=== PATIENT | male | born 1955 | race Caucasian/White ===

== ENCOUNTER 2018-02-20 10:17 | Inpatient (IN) | payer BC ==
[2018-02-20] MEDS ORDERED: NS 0.9% 1000 ML* 1,000 ML IV ONE ×2 (10:36→10:47)
[2018-02-20] MEDS ORDERED: Insulin IVPB 100 units/100 ml 100 UNITS/100 ML UNIT IVPB ONE ×2 (10:36)
[2018-02-20] MEDS ORDERED: Insulin REGULAR(*) 1 UNITS UNIT IV ONE (10:36)
--- NOTE | 2018-02-20 10:38 | ED ---
HPI Diabetic - HPI Summary HPI Summary: This is gia Ortega documenting for attending Espinoza Jaime MD. This patient is a 62 year old M BIBA to [facility] accompanied by another man with a chief complaint of general malaise for the past two days. Pt is IDDM and believes his pump is not working. He also has not been eating much for the past 2-3 days. Patient reports n/v, weakness, fatigue, difficulty walking, polyuria, polydipsia, and polyphagia. Patient denies SOB, CP, ABD pain, diarrhea, visual changes, and GUILLORY. EMS reports a blood glucose of 520, he was given zofran by EMS. Pt also has a loose front left incisor, takes 81 mg ASA daily. - History Of Current Complaint Chief Complaint: EDDiabeticProb Time Seen by Provider: 02/20/18 10:30 Hx Obtained From: Patient Onset/Duration: Lasting Days - 2, Still Present Timing: Constant Severity Initially: Moderate Severity Currently: Moderate Character: Alert Associated Signs & Symptoms: Negative - SOB, CP, ABD pain, diarrhea, visual changes, and GUILLORY., Polydipsia, Polyphagia, Polyuria - Allergies/Home Medications Allergies/Adverse Reactions: Allergies Allergy/AdvReac Type Severity Reaction Status Date / Time bee venom protein (honey bee) Allergy Swelling Verified 02/20/18 11:15 Of Face,Lips,& Throat PMH/Surg Hx/FS Hx/Imm Hx Endocrine/Hematology History: Reports: Hx Diabetes Cardiovascular History: Reports: Hx Coronary Artery Disease, Other Cardiovascular Problems/Disorders - HLD Psychiatric History: Reports: Hx Depression, Hx Bipolar Disorder Infectious Disease History: No Infectious Disease History: Denies: Traveled Outside the [place] in Last 30 Days - Family History Known Family History: Positive: Diabetes Negative: Seizure Disorder - Social History Alcohol Use: Occasionally Substance Use Type: Reports: None Hx Tobacco Use: No Smoking Status (MU): Never Smoked Tobacco Review of Systems Constitutional: Other - difficulty walking Positive: Fatigue, Other - general malaise Negative: Blurred Vision Negative: Chest Pain Negative: Shortness Of Breath Gastrointestinal: Other - polyuria, polydipsia, and polyphagia Positive: Vomiting, Nausea. Negative: Abdominal Pain, Diarrhea Positive: Weakness. Negative: Headache All Other Systems Reviewed And Are Negative: Yes Physical Exam - Summary Physical Exam Summary: Appearance: mild to moderate distress Skin: there is a callus on the mid anterior tibia Head/face: normal Eyes: EOMI, KHADAR ENT: loose partial incisor, mucus membranes are dry Neck: supple, non-tender Respiratory: tachypneic, breath sounds present, CTA Cardiovascular: tachycardic but regular Abdomen: non-tender, soft, there is a pump implanted into his right flank and it is secured with duct tape, there is induration where the pump was inserted into the skin Bowel Sounds: present Musculoskeletal: normal, strength/ROM intact Neuro: general weakness, no focality, sensory motor intact, A&Ox3 Triage Information Reviewed: Yes Vital Signs On Initial Exam: Initial Vitals Temp Pulse Resp BP Pulse Ox 97.0 F 105 18 177/90 98 02/20/18 10:19 02/20/18 10:19 02/20/18 10:19 02/20/18 10:19 02/20/18 10:19 Vital Signs Reviewed: Yes Diagnostics - Vital Signs Vital Signs Temp Pulse Resp BP Pulse Ox 02/20/18 10:19 97.0 F 105 18 177/90 98 - Laboratory Result Diagrams: 02/20/18 10:58 02/20/18 10:58 Lab Statement: Any lab studies that have been ordered have been reviewed, and results considered in the medical decision making process. - Radiology CXR Radiology Interpretation Completed By: Radiologist - NO ACTIVE CARDIOPULMONARY DISEASE IS NOTED. ED physician has reviewed this radiology report. - EKG 1048 Cardiac Rate: Tachycardia EKG Rhythm: Sinus Tachycardia - at [address] Segment: Non-Specific EKG Interpretation: normal axis and prolonged QTc Diabetic Course/Dx - Course Course Of Treatment: Patient presents critically ill in presumed DKA. His blood sugars very high and he is tachycardic slashed. Initial ABG shows pH of less than 7.0. His bicarbonate is very low. IV fluid resuscitation was begun and insulin drip was ordered. He was also given bolus dose insulin. He has no definite source of infection and no chest pain. His EKG is nondiagnostic for cardiac cause. The ICU physician was contacted and came to the bedside to evaluate. He'll be taken emergently to the ICU for further resuscitation. His potassium is slightly elevated at this time which is a good indicator. His lithium level is actually low. Possible etiologies malfunction of his insulin pump. It was held to the skin by duct tape. - Diagnoses Provider Diagnoses: DKA (diabetic ketoacidoses), Complication of insulin pump, Hyperkalemia, transcellular shifts - Physician Notifications Discussed Care Of Patient With: Phoenix Vargas Time Discussed With Above Provider: 11:10 Instructed by Provider To: Other - I discussed patient care with Dr. Vargas and he has agreed to come see the patient. 11:25 After he examined the patient he has agreed to admit him to the ICU. - Critical Care Time Critical Care Time: 30-74 min Discharge - Sign-Out/Discharge Documenting (check all that apply): Patient Departure - admitte to the ICU under Dr. Vargas - Discharge Plan Condition: Critical Disposition: ADMITTED TO [facility] - Billing Disposition and Condition Condition: CRITICAL Disposition: Admitted to [facility]
[2018-02-20 11:06] LABS: ABS Basophils 0.1 10^3/ul (0-0.2); ABS Eosinophils 0 10^3/ul (0-0.6); ABS Lymphocytes 1.8 10^3/ul (1.0-4.8); ABS Monocytes 0.6 10^3/ul (0-0.8); ABS Neutrophils 21.8 10^3/ul (1.5-7.7); ABS Nucleated RBC 0 10^3/ul; Eosinophil % 0.1 % (0-6); Hematocrit 51 % (42-52); Hemoglobin 16.8 g/dl (14.0-18.0); Lymphocyte % 7.4 % (25-47); Mean Corpuscular HGB Conc 33 g/dl (31-36); Mean Corpuscular Hemoglobin 29 pg (27-31); Mean Corpuscular Volume 89 fL (80-94); Mean Platelet Volume 8.4 um3 (7.4-10.4); Nucleated Red Blood Cells % 0.2; Platelet Count 333 10^3/ul (150-450); Red Blood Count 5.79 10^6/ul (4.00-5.40); Red Cell Distribution Width 14 % (10.5-15); White Blood Count 24.4 10^3/ul (3.5-10.8)
[2018-02-20 11:12] LABS: INR 0.89 (0.77-1.02)
[2018-02-20 11:24] LABS: EGFR Non-African American 49.7 (>60)
[2018-02-20] MEDS ORDERED: NS 0.9% 1000 ML* 2,000 ML IV ONE (11:43)
[2018-02-20 11:45] LABS: Lithium 0.51 mmol/L (0.6-1.2)
--- NOTE | 2018-02-20 11:54 | RAD ---
Indication: Diabetic ketoacidosis. Single frontal view of the chest performed at 1115 hours was reviewed. No prior study is available for comparison. No mediastinal shift is noted. Heart is of normal size and configuration. Lung monreal appear clear. IMPRESSION: NO ACTIVE CARDIOPULMONARY DISEASE IS NOTED.
--- NOTE | 2018-02-20 12:22 | HP ---
H&P (Free Text) History and Physical: CC: Weakness HPI: 62M with hld, dm, cad, bipolar depression presents with weakness. The patient states symptoms have been going on for the past several days and he thinks his insulin pump may not be working. He denies any fever or chills. No chest pain or shortness of breath. He does have some nausea and poor appetite. He does have excessive thirst and polyuria. In the ER he was found to have FS > 500, and pH < 7. The patient was started on iv fluids and an insulin gtt. The patient had been securing his insulin pump with duct tape. He reports his last a1c was > 13. ROS - as per HPI PMHx - hld, cad, dm, bipolar depression PSHx - denies All - bees SocHx - denies drugs, etoh, or tobacco FamHx - DM PE Vital Signs: Temp Pulse Resp BP Pulse Ox 99.0 F 110 22 157/69 98 02/20/18 12:23 02/20/18 12:23 02/20/18 12:23 02/20/18 12:23 02/20/18 12:23 Gen - Acutely ill HEENT - ncat, eomi, perrl Neck - no jvd, no thyromegaly CV - s1/s2, tachy Pulm - cta, no wheeze Abd - soft, nt Ext - no cce Neuro - non-focal Labs Laboratory Results - last 24 hr 02/20/18 02/20/18 02/20/18 10:50 10:58 10:58 WBC 24.4 H RBC 5.79 H Hgb 16.8 Hct 51 MCV 89 MCH 29 MCHC 33 RDW 14 Plt Count 333 MPV 8.4 Neut % (Auto) 89.5 H Lymph % (Auto) 7.4 L [place] % (Auto) 2.6 Eos % (Auto) 0.1 Baso % (Auto) 0.4 Absolute Neuts (auto) 21.8 H Absolute Lymphs (auto) 1.8 Absolute Monos (auto) 0.6 Absolute Eos (auto) 0 Absolute Basos (auto) 0.1 Absolute Nucleated RBC 0 Nucleated RBC % 0.2 INR (Anticoag Therapy) ABG pH < 7.00 L* ABG pCO2 < 20 L ABG pO2 119 H ABG HCO3 4.5 L* ABG O2 Saturation 98.6 H ABG Base Excess -26.1 L Sodium 131 L Potassium 6.1 H* Chloride 99 L Carbon Dioxide < 7 L* Anion Gap Not Reportable BUN 35 H Creatinine 1.44 H Est GFR ( Amer) 60.1 Est GFR (Non-Af Amer) 49.7 BUN/Creatinine Ratio 24.3 H Glucose 543 H* Lactic Acid Calcium 9.3 Phosphorus 6.5 H Magnesium 2.6 Total Bilirubin 0.50 AST 11 L ALT 32 Alkaline Phosphatase 151 H Total Creatine Kinase 36 Troponin I 0.01 C-Reactive Protein 35.57 H Total Protein 7.9 Albumin 4.3 Globulin 3.6 Albumin/Globulin Ratio 1.2 Urine Color Urine Appearance Urine pH Ur Specific [place] Urine Protein Urine Ketones Urine Blood Urine Nitrate Urine Bilirubin Urine Urobilinogen Ur Leukocyte Esterase Urine WBC (Auto) Urine RBC (Auto) Ur Squamous Epith Cells Urine Bacteria Urine Glucose [place] 0.51 L Serum Alcohol < 10 02/20/18 02/20/18 02/20/18 10:58 10:58 12:22 WBC RBC Hgb Hct MCV MCH MCHC RDW Plt Count MPV Neut % (Auto) Lymph % (Auto) [place] % (Auto) Eos % (Auto) Baso % (Auto) Absolute Neuts (auto) Absolute Lymphs (auto) Absolute Monos (auto) Absolute Eos (auto) Absolute Basos (auto) Absolute Nucleated RBC Nucleated RBC % INR (Anticoag Therapy) 0.89 ABG pH ABG pCO2 ABG pO2 ABG HCO3 ABG O2 Saturation ABG Base Excess Sodium 133 L Potassium 5.0 Chloride 103 Carbon Dioxide < 7 L* Anion Gap Not Reportable BUN 36 H Creatinine 1.43 H Est GFR ( Amer) 60.6 Est GFR (Non-Af Amer) 50.1 BUN/Creatinine Ratio 25.2 H Glucose 477 H Lactic Acid 1.9 Calcium 8.9 Phosphorus Magnesium 2.6 Total Bilirubin AST ALT Alkaline Phosphatase Total Creatine Kinase Troponin I C-Reactive Protein Total Protein Albumin Globulin Albumin/Globulin Ratio Urine Color Urine Appearance Urine pH Ur Specific [place] Urine Protein Urine Ketones Urine Blood Urine Nitrate Urine Bilirubin Urine Urobilinogen Ur Leukocyte Esterase Urine WBC (Auto) Urine RBC (Auto) Ur Squamous Epith Cells Urine Bacteria Urine Glucose [place] Serum Alcohol 02/20/18 12:37 WBC RBC Hgb Hct MCV MCH MCHC RDW Plt Count MPV Neut % (Auto) Lymph % (Auto) [place] % (Auto) Eos % (Auto) Baso % (Auto) Absolute Neuts (auto) Absolute Lymphs (auto) Absolute Monos (auto) Absolute Eos (auto) Absolute Basos (auto) Absolute Nucleated RBC Nucleated RBC % INR (Anticoag Therapy) ABG pH ABG pCO2 ABG pO2 ABG HCO3 ABG O2 Saturation ABG Base Excess Sodium Potassium Chloride Carbon Dioxide Anion Gap BUN Creatinine Est GFR ( Amer) Est GFR (Non-Af Amer) BUN/Creatinine Ratio Glucose Lactic Acid Calcium Phosphorus Magnesium Total Bilirubin AST ALT Alkaline Phosphatase Total Creatine Kinase Troponin I C-Reactive Protein Total Protein Albumin Globulin Albumin/Globulin Ratio Urine Color Yellow Urine Appearance Clear Urine pH 5.0 Ur Specific [place] 1.020 Urine Protein 1+(30 mg/dl) A Urine Ketones 2+ A Urine Blood 1+ A Urine Nitrate Negative Urine Bilirubin Negative Urine Urobilinogen Negative Ur Leukocyte Esterase Negative Urine WBC (Auto) Trace(0-5/hpf) Urine RBC (Auto) 2+(6-10/hpf) A Ur Squamous Epith Cells Present A Urine Bacteria Absent Urine Glucose 3+(>=500 mg/dl) A [place] Serum Alcohol Imaging 02/20/18 CXR IMPRESSION: NO ACTIVE CARDIOPULMONARY DISEASE IS NOTED. Impression: 62M with hld, dm, cad, bipolar depression admitted with severe metabolic acidosis 2/2 DKA DKA - fs q1h - insulin gtt - serial bmp - replete electrolytes - npo - check tsh/a1c cad/hld - c/w asa/statin bipolar depression - restart duloxetine/lithium lines - piv ppx - gi/dvt Full Code Critical Care Time: 60 minutes
[2018-02-20 12:47] LABS: EGFR Non-African American 50.1 (>60)
[2018-02-20 12:49] LABS: Urine Appearance Clear; Urine Blood 1+ (Negative); Urine Color Yellow; Urine Ketones 2+ (Negative); Urine Protein 1+(30 mg/dL) (Negative); Urine Red Blood Cell 2+(6-10/hpf) (Absent); Urine Urobilinogen Negative (Negative); Urine White Blood Cell Trace(0-5/hpf) (Absent)
[2018-02-20] MEDS ORDERED: Ondansetron INJ* 2 MG/ML VIAL IV PRN (14:49)
[2018-02-20] MEDS: Heparin VIAL(*) 5000 UNITS/ML VIAL (FIVE THOUSAND) SUBCUT SCH ×2 (15:21→21:11)
[2018-02-20] MEDS ORDERED: Insulin IVPB 100 units/100 ml 100 UNITS/100 ML UNIT IVPB SCH ×2 (17:30→21:00)
[2018-02-20] MEDS: D5LR 1000 ML BAG* 1,000 ML IV SCH (18:04)
[2018-02-20 18:14] LABS: EGFR Non-African American 57.5 (>60)
[2018-02-20] MEDS: Lithium Carbonate CAP 150 MG ** CAPSULE PO SCH (21:10)
[2018-02-20] MEDS: Amitriptyline TAB* 50 MG PO SCH (21:10)
[2018-02-20] MEDS: Pregabalin CAP(*) 100 MG PO SCH (21:11)
[2018-02-21] MEDS: D5LR 1000 ML BAG* 1,000 ML IV SCH (00:28)
[2018-02-21 00:30] LABS: EGFR Non-African American 68.5 (>60)
[2018-02-21] MEDS: Potassium & Sodium Phos 250MG* = 1 PACKET PO SCH ×4 (02:01→19:36)
[2018-02-21 05:02] LABS: ABS Basophils 0.1 10^3/ul (0-0.2); ABS Eosinophils 0 10^3/ul (0-0.6); ABS Lymphocytes 1.4 10^3/ul (1.0-4.8); ABS Monocytes 0.9 10^3/ul (0-0.8); ABS Nucleated RBC 0 10^3/ul; Eosinophil % 0.1 % (0-6); Hematocrit 41 % (42-52); Hemoglobin 14.4 g/dl (14.0-18.0); Lymphocyte % 7.8 % (25-47); Mean Corpuscular HGB Conc 35 g/dl (31-36); Mean Corpuscular Hemoglobin 29 pg (27-31); Mean Corpuscular Volume 84 fL (80-94); Mean Platelet Volume 7.7 um3 (7.4-10.4); Nucleated Red Blood Cells % 0.1; Platelet Count 256 10^3/ul (150-450); Red Cell Distribution Width 14 % (10.5-15); White Blood Count 18.5 10^3/ul (3.5-10.8)
[2018-02-21 05:18] LABS: EGFR Non-African American 78.4 (>60)
[2018-02-21] MEDS: Heparin VIAL(*) 5000 UNITS/ML VIAL (FIVE THOUSAND) SUBCUT SCH ×3 (05:46→21:24)
[2018-02-21] MEDS ORDERED: Dextrose 50% Syringe 50 ML* 25 GM/50 ML SYRINGE IV PUSH PRN (06:35)
[2018-02-21] MEDS: KCL 20 MEQ/100 ML IVPREMIX* 20 MEQ/100 ML BAG IV SCH ×2 (06:43→08:14)
--- NOTE | 2018-02-21 07:51 | PN ---
Date of Service: 02/21/18 Critical Care Services: 62M with hld, dm, cad, bipolar depression admitted with severe metabolic acidosis 2/2 DKA 02/21: AG closed. Started on lantus, sliding scale and tolerating po. Vital Signs: Temp Pulse Resp BP SpO2 FiO2 98.6 F 84 20 107/69 94 02/21/18 06:01 02/21/18 06:01 02/21/18 06:01 02/21/18 06:01 02/21/18 06:01 Physical Exam: Gen - Acutely ill HEENT - ncat, eomi, perrl Neck - no jvd, no thyromegaly CV - s1/s2, tachy Pulm - cta, no wheeze Abd - soft, nt Ext - no cce Neuro - non-focal Fluid Balance (Past 24 Hours): I= O= Net Intake & Output 02/19/18 02/20/18 02/21/18 02/22/18 06:59 06:59 06:59 06:59 Intake Total 6418 Output Total 4202 Balance 2216 Weight 109 kg Intake: IV Fluids 5456 D5W LR 2156 LR 300 NS (0.9%) 3000 Medicated IV 137 CC - Insulin 137 Oral 825 Output: Urine 120 Dick 4082 Labs: Laboratory Results - last 24 hr 02/20/18 02/20/18 02/20/18 10:50 10:58 10:58 WBC 24.4 H RBC 5.79 H Hgb 16.8 Hct 51 MCV 89 MCH 29 MCHC 33 RDW 14 Plt Count 333 MPV 8.4 Neut % (Auto) 89.5 H Lymph % (Auto) 7.4 L [place] % (Auto) 2.6 Eos % (Auto) 0.1 Baso % (Auto) 0.4 Absolute Neuts (auto) 21.8 H Absolute Lymphs (auto) 1.8 Absolute Monos (auto) 0.6 Absolute Eos (auto) 0 Absolute Basos (auto) 0.1 Absolute Nucleated RBC 0 Nucleated RBC % 0.2 INR (Anticoag Therapy) ABG pH < 7.00 L* ABG pCO2 < 20 L ABG pO2 119 H ABG HCO3 4.5 L* ABG O2 Saturation 98.6 H ABG Base Excess -26.1 L Sodium 131 L Potassium 6.1 H* Chloride 99 L Carbon Dioxide < 7 L* Anion Gap Not Reportable BUN 35 H Creatinine 1.44 H Est GFR ( Amer) 60.1 Est GFR (Non-Af Amer) 49.7 BUN/Creatinine Ratio 24.3 H Glucose 543 H* POC Glucose (mg/dL) Lactic Acid Calcium 9.3 Phosphorus 6.5 H Magnesium 2.6 Total Bilirubin 0.50 AST 11 L ALT 32 Alkaline Phosphatase 151 H Total Creatine Kinase 36 Troponin I 0.01 C-Reactive Protein 35.57 H Total Protein 7.9 Albumin 4.3 Globulin 3.6 Albumin/Globulin Ratio 1.2 Triglycerides Cholesterol LDL Cholesterol HDL Cholesterol TSH Urine Color Urine Appearance Urine pH Ur Specific [place] Urine Protein Urine Ketones Urine Blood Urine Nitrate Urine Bilirubin Urine Urobilinogen Ur Leukocyte Esterase Urine WBC (Auto) Urine RBC (Auto) Ur Squamous Epith Cells Urine Bacteria Urine Glucose [place] 0.51 L Serum Alcohol < 10 02/20/18 02/20/18 02/20/18 10:58 10:58 12:22 WBC RBC Hgb Hct MCV MCH MCHC RDW Plt Count MPV Neut % (Auto) Lymph % (Auto) [place] % (Auto) Eos % (Auto) Baso % (Auto) Absolute Neuts (auto) Absolute Lymphs (auto) Absolute Monos (auto) Absolute Eos (auto) Absolute Basos (auto) Absolute Nucleated RBC Nucleated RBC % INR (Anticoag Therapy) 0.89 ABG pH ABG pCO2 ABG pO2 ABG HCO3 ABG O2 Saturation ABG Base Excess Sodium 133 L Potassium 5.0 Chloride 103 Carbon Dioxide < 7 L* Anion Gap Not Reportable BUN 36 H Creatinine 1.43 H Est GFR ( Amer) 60.6 Est GFR (Non-Af Amer) 50.1 BUN/Creatinine Ratio 25.2 H Glucose 477 H POC Glucose (mg/dL) Lactic Acid 1.9 Calcium 8.9 Phosphorus Magnesium 2.6 Total Bilirubin AST ALT Alkaline Phosphatase Total Creatine Kinase Troponin I C-Reactive Protein Total Protein Albumin Globulin Albumin/Globulin Ratio Triglycerides Cholesterol LDL Cholesterol HDL Cholesterol TSH Urine Color Urine Appearance Urine pH Ur Specific [place] Urine Protein Urine Ketones Urine Blood Urine Nitrate Urine Bilirubin Urine Urobilinogen Ur Leukocyte Esterase Urine WBC (Auto) Urine RBC (Auto) Ur Squamous Epith Cells Urine Bacteria Urine Glucose [place] Serum Alcohol 02/20/18 02/20/18 02/20/18 12:37 14:01 14:05 WBC RBC Hgb Hct MCV MCH MCHC RDW Plt Count MPV Neut % (Auto) Lymph % (Auto) [place] % (Auto) Eos % (Auto) Baso % (Auto) Absolute Neuts (auto) Absolute Lymphs (auto) Absolute Monos (auto) Absolute Eos (auto) Absolute Basos (auto) Absolute Nucleated RBC Nucleated RBC % INR (Anticoag Therapy) ABG pH ABG pCO2 ABG pO2 ABG HCO3 ABG O2 Saturation ABG Base Excess Sodium Potassium Chloride Carbon Dioxide Anion Gap BUN Creatinine Est GFR ( Amer) Est GFR (Non-Af Amer) BUN/Creatinine Ratio Glucose POC Glucose (mg/dL) 410 H* 410 H* Lactic Acid Calcium Phosphorus Magnesium Total Bilirubin AST ALT Alkaline Phosphatase Total Creatine Kinase Troponin I C-Reactive Protein Total Protein Albumin Globulin Albumin/Globulin Ratio Triglycerides Cholesterol LDL Cholesterol HDL Cholesterol TSH Urine Color Yellow Urine Appearance Clear Urine pH 5.0 Ur Specific [place] 1.020 Urine Protein 1+(30 mg/dl) A Urine Ketones 2+ A Urine Blood 1+ A Urine Nitrate Negative Urine Bilirubin Negative Urine Urobilinogen Negative Ur Leukocyte Esterase Negative Urine WBC (Auto) Trace(0-5/hpf) Urine RBC (Auto) 2+(6-10/hpf) A Ur Squamous Epith Cells Present A Urine Bacteria Absent Urine Glucose 3+(>=500 mg/dl) A [place] Serum Alcohol 02/20/18 02/20/18 02/20/18 15:12 15:58 17:03 WBC RBC Hgb Hct MCV MCH MCHC RDW Plt Count MPV Neut % (Auto) Lymph % (Auto) [place] % (Auto) Eos % (Auto) Baso % (Auto) Absolute Neuts (auto) Absolute Lymphs (auto) Absolute Monos (auto) Absolute Eos (auto) Absolute Basos (auto) Absolute Nucleated RBC Nucleated RBC % INR (Anticoag Therapy) ABG pH ABG pCO2 ABG pO2 ABG HCO3 ABG O2 Saturation ABG Base Excess Sodium Potassium Chloride Carbon Dioxide Anion Gap BUN Creatinine Est GFR ( Amer) Est GFR (Non-Af Amer) BUN/Creatinine Ratio Glucose POC Glucose (mg/dL) 326 H 300 H 250 H Lactic Acid Calcium Phosphorus Magnesium Total Bilirubin AST ALT Alkaline Phosphatase Total Creatine Kinase Troponin I C-Reactive Protein Total Protein Albumin Globulin Albumin/Globulin Ratio Triglycerides Cholesterol LDL Cholesterol HDL Cholesterol TSH Urine Color Urine Appearance Urine pH Ur Specific [place] Urine Protein Urine Ketones Urine Blood Urine Nitrate Urine Bilirubin Urine Urobilinogen Ur Leukocyte Esterase Urine WBC (Auto) Urine RBC (Auto) Ur Squamous Epith Cells Urine Bacteria Urine Glucose [place] Serum Alcohol 02/20/18 02/20/18 02/20/18 17:50 17:51 19:03 WBC RBC Hgb Hct MCV MCH MCHC RDW Plt Count MPV Neut % (Auto) Lymph % (Auto) [place] % (Auto) Eos % (Auto) Baso % (Auto) Absolute Neuts (auto) Absolute Lymphs (auto) Absolute Monos (auto) Absolute Eos (auto) Absolute Basos (auto) Absolute Nucleated RBC Nucleated RBC % INR (Anticoag Therapy) ABG pH ABG pCO2 ABG pO2 ABG HCO3 ABG O2 Saturation ABG Base Excess Sodium 135 Potassium 4.3 Chloride 110 Carbon Dioxide 11 L* Anion Gap 14 H BUN 30 H Creatinine 1.27 H Est GFR ( Amer) 69.5 Est GFR (Non-Af Amer) 57.5 BUN/Creatinine Ratio 23.6 H Glucose 194 H POC Glucose (mg/dL) 183 H 163 H Lactic Acid Calcium 8.2 L Phosphorus Magnesium 2.1 Total Bilirubin AST ALT Alkaline Phosphatase Total Creatine Kinase Troponin I C-Reactive Protein Total Protein Albumin Globulin Albumin/Globulin Ratio Triglycerides Cholesterol LDL Cholesterol HDL Cholesterol TSH Urine Color Urine Appearance Urine pH Ur Specific [place] Urine Protein Urine Ketones Urine Blood Urine Nitrate Urine Bilirubin Urine Urobilinogen Ur Leukocyte Esterase Urine WBC (Auto) Urine RBC (Auto) Ur Squamous Epith Cells Urine Bacteria Urine Glucose [place] Serum Alcohol 02/20/18 02/20/18 02/20/18 20:11 21:10 22:03 WBC RBC Hgb Hct MCV MCH MCHC RDW Plt Count MPV Neut % (Auto) Lymph % (Auto) [place] % (Auto) Eos % (Auto) Baso % (Auto) Absolute Neuts (auto) Absolute Lymphs (auto) Absolute Monos (auto) Absolute Eos (auto) Absolute Basos (auto) Absolute Nucleated RBC Nucleated RBC % INR (Anticoag Therapy) ABG pH ABG pCO2 ABG pO2 ABG HCO3 ABG O2 Saturation ABG Base Excess Sodium Potassium Chloride Carbon Dioxide Anion Gap BUN Creatinine Est GFR ( Amer) Est GFR (Non-Af Amer) BUN/Creatinine Ratio Glucose POC Glucose (mg/dL) 142 H 151 H 162 H Lactic Acid Calcium Phosphorus Magnesium Total Bilirubin AST ALT Alkaline Phosphatase Total Creatine Kinase Troponin I C-Reactive Protein Total Protein Albumin Globulin Albumin/Globulin Ratio Triglycerides Cholesterol LDL Cholesterol HDL Cholesterol TSH Urine Color Urine Appearance Urine pH Ur Specific [place] Urine Protein Urine Ketones Urine Blood Urine Nitrate Urine Bilirubin Urine Urobilinogen Ur Leukocyte Esterase Urine WBC (Auto) Urine RBC (Auto) Ur Squamous Epith Cells Urine Bacteria Urine Glucose [place] Serum Alcohol 02/20/18 02/20/18 02/21/18 23:04 23:50 00:06 WBC RBC Hgb Hct MCV MCH MCHC RDW Plt Count MPV Neut % (Auto) Lymph % (Auto) [place] % (Auto) Eos % (Auto) Baso % (Auto) Absolute Neuts (auto) Absolute Lymphs (auto) Absolute Monos (auto) Absolute Eos (auto) Absolute Basos (auto) Absolute Nucleated RBC Nucleated RBC % INR (Anticoag Therapy) ABG pH ABG pCO2 ABG pO2 ABG HCO3 ABG O2 Saturation ABG Base Excess Sodium 136 Potassium 3.8 Chloride 111 Carbon Dioxide 17 L Anion Gap 8 BUN 25 H Creatinine 1.09 Est GFR ( Amer) 82.9 Est GFR (Non-Af Amer) 68.5 BUN/Creatinine Ratio 22.9 H Glucose 178 H POC Glucose (mg/dL) 178 H 171 H Lactic Acid Calcium 8.5 L Phosphorus 1.6 L Magnesium 2.1 Total Bilirubin AST ALT Alkaline Phosphatase Total Creatine Kinase Troponin I C-Reactive Protein Total Protein Albumin Globulin Albumin/Globulin Ratio Triglycerides Cholesterol LDL Cholesterol HDL Cholesterol TSH Urine Color Urine Appearance Urine pH Ur Specific [place] Urine Protein Urine Ketones Urine Blood Urine Nitrate Urine Bilirubin Urine Urobilinogen Ur Leukocyte Esterase Urine WBC (Auto) Urine RBC (Auto) Ur Squamous Epith Cells Urine Bacteria Urine Glucose [place] Serum Alcohol 02/21/18 02/21/18 02/21/18 01:04 02:03 02:56 WBC RBC Hgb Hct MCV MCH MCHC RDW Plt Count MPV Neut % (Auto) Lymph % (Auto) [place] % (Auto) Eos % (Auto) Baso % (Auto) Absolute Neuts (auto) Absolute Lymphs (auto) Absolute Monos (auto) Absolute Eos (auto) Absolute Basos (auto) Absolute Nucleated RBC Nucleated RBC % INR (Anticoag Therapy) ABG pH ABG pCO2 ABG pO2 ABG HCO3 ABG O2 Saturation ABG Base Excess Sodium Potassium Chloride Carbon Dioxide Anion Gap BUN Creatinine Est GFR ( Amer) Est GFR (Non-Af Amer) BUN/Creatinine Ratio Glucose POC Glucose (mg/dL) 181 H 179 H 175 H Lactic Acid Calcium Phosphorus Magnesium Total Bilirubin AST ALT Alkaline Phosphatase Total Creatine Kinase Troponin I C-Reactive Protein Total Protein Albumin Globulin Albumin/Globulin Ratio Triglycerides Cholesterol LDL Cholesterol HDL Cholesterol TSH Urine Color Urine Appearance Urine pH Ur Specific [place] Urine Protein Urine Ketones Urine Blood Urine Nitrate Urine Bilirubin Urine Urobilinogen Ur Leukocyte Esterase Urine WBC (Auto) Urine RBC (Auto) Ur Squamous Epith Cells Urine Bacteria Urine Glucose [place] Serum Alcohol 02/21/18 02/21/18 02/21/18 04:13 04:52 04:52 WBC 18.5 H RBC 4.90 Hgb 14.4 Hct 41 L MCV 84 MCH 29 MCHC 35 RDW 14 Plt Count 256 MPV 7.7 Neut % (Auto) 86.4 H Lymph % (Auto) 7.8 L [place] % (Auto) 5.1 Eos % (Auto) 0.1 Baso % (Auto) 0.6 Absolute Neuts (auto) 16.0 H Absolute Lymphs (auto) 1.4 Absolute Monos (auto) 0.9 H Absolute Eos (auto) 0 Absolute Basos (auto) 0.1 Absolute Nucleated RBC 0 Nucleated RBC % 0.1 INR (Anticoag Therapy) ABG pH ABG pCO2 ABG pO2 ABG HCO3 ABG O2 Saturation ABG Base Excess Sodium 137 Potassium 3.3 L Chloride 112 H Carbon Dioxide 18 L Anion Gap 7 BUN 23 Creatinine 0.97 Est GFR ( Amer) 94.9 Est GFR (Non-Af Amer) 78.4 BUN/Creatinine Ratio 23.7 H Glucose 163 H POC Glucose (mg/dL) 172 H Lactic Acid Calcium 8.8 Phosphorus 1.5 L Magnesium 2.2 Total Bilirubin AST ALT Alkaline Phosphatase Total Creatine Kinase Troponin I C-Reactive Protein Total Protein Albumin Globulin Albumin/Globulin Ratio Triglycerides 110 Cholesterol 102 LDL Cholesterol 43 HDL Cholesterol 37.1 TSH 1.91 Urine Color Urine Appearance Urine pH Ur Specific [place] Urine Protein Urine Ketones Urine Blood Urine Nitrate Urine Bilirubin Urine Urobilinogen Ur Leukocyte Esterase Urine WBC (Auto) Urine RBC (Auto) Ur Squamous Epith Cells Urine Bacteria Urine Glucose [place] Serum Alcohol 02/21/18 02/21/18 04:59 06:11 WBC RBC Hgb Hct MCV MCH MCHC RDW Plt Count MPV Neut % (Auto) Lymph % (Auto) [place] % (Auto) Eos % (Auto) Baso % (Auto) Absolute Neuts (auto) Absolute Lymphs (auto) Absolute Monos (auto) Absolute Eos (auto) Absolute Basos (auto) Absolute Nucleated RBC Nucleated RBC % INR (Anticoag Therapy) ABG pH ABG pCO2 ABG pO2 ABG HCO3 ABG O2 Saturation ABG Base Excess Sodium Potassium Chloride Carbon Dioxide Anion Gap BUN Creatinine Est GFR ( Amer) Est GFR (Non-Af Amer) BUN/Creatinine Ratio Glucose POC Glucose (mg/dL) 163 H 159 H Lactic Acid Calcium Phosphorus Magnesium Total Bilirubin AST ALT Alkaline Phosphatase Total Creatine Kinase Troponin I C-Reactive Protein Total Protein Albumin Globulin Albumin/Globulin Ratio Triglycerides Cholesterol LDL Cholesterol HDL Cholesterol TSH Urine Color Urine Appearance Urine pH Ur Specific [place] Urine Protein Urine Ketones Urine Blood Urine Nitrate Urine Bilirubin Urine Urobilinogen Ur Leukocyte Esterase Urine WBC (Auto) Urine RBC (Auto) Ur Squamous Epith Cells Urine Bacteria Urine Glucose [place] Serum Alcohol Studies: 02/20/18 CXR IMPRESSION: NO ACTIVE CARDIOPULMONARY DISEASE IS NOTED. Impression: 62M with hld, dm, cad, bipolar depression admitted with severe metabolic acidosis 2/2 DKA Plan: DKA - improved - AG closed - started on lantus, sliding scale - tolerating po - needs to have endocrine follow up to evaluate insulin pump cad/hld - c/w asa/statin bipolar depression - duloxetine/lithium lines - piv ppx - gi/dvt Full Code
[2018-02-21] MEDS: Lithium Carbonate CAP 150 MG ** CAPSULE PO SCH ×2 (08:12→19:40)
[2018-02-21] MEDS: DULoxetine DR CAP* 60 MG CAP.DR PO SCH (08:12)
[2018-02-21] MEDS: Aspirin EC TAB* 81 MG TAB.EC PO SCH (08:13)
[2018-02-21] MEDS: Pregabalin CAP(*) 100 MG PO SCH ×3 (08:13→19:39)
[2018-02-21] MEDS ORDERED: Insulin GLARGINE(*) 1 UNITS UNIT SUBCUT SCH (09:00)
[2018-02-21] MEDS: Insulin LISPRO* 1 UNITS UNIT SUBCUT SCH ×8 (09:45→19:46)
[2018-02-21 14:24] LABS: EGFR Non-African American 75.7 (>60)
[2018-02-21] MEDS ORDERED: NS 0.9% 1000 ML* 1,000 ML IV ONE (15:13)
[2018-02-21] MEDS ORDERED: NS 0.9% 1000 ML* 2,000 ML IV ONE (15:15)
[2018-02-21] MEDS: Atorvastatin* 10 MG TAB PO SCH (17:52)
[2018-02-21] MEDS: Amitriptyline TAB* 50 MG PO SCH (19:39)
[2018-02-21 20:01] LABS: EGFR Non-African American 81.3 (>60)
[2018-02-21] MEDS ORDERED: Potassium & Sodium Phos 250MG* = 1 PACKET PO ONE (20:46)
[2018-02-22] MEDS ORDERED: Potassium Chlor TAB* 20 MEQ TAB.ER PO ONE (04:37)
[2018-02-22] MEDS: Heparin VIAL(*) 5000 UNITS/ML VIAL (FIVE THOUSAND) SUBCUT SCH ×3 (05:30→21:42)
[2018-02-22 05:57] LABS: ABS Basophils 0.1 10^3/ul (0-0.2); ABS Eosinophils 0.1 10^3/ul (0-0.6); ABS Lymphocytes 1.5 10^3/ul (1.0-4.8); ABS Monocytes 0.6 10^3/ul (0-0.8); ABS Neutrophils 7.1 10^3/ul (1.5-7.7); ABS Nucleated RBC 0 10^3/ul; Eosinophil % 1.4 % (0-6); Hematocrit 40 % (42-52); Hemoglobin 14.2 g/dl (14.0-18.0); Lymphocyte % 16.2 % (25-47); Mean Corpuscular HGB Conc 36 g/dl (31-36); Mean Corpuscular Hemoglobin 30 pg (27-31); Mean Corpuscular Volume 84 fL (80-94); Mean Platelet Volume 7.7 um3 (7.4-10.4); Nucleated Red Blood Cells % 0; Platelet Count 183 10^3/ul (150-450); Red Blood Count 4.76 10^6/ul (4.00-5.40); Red Cell Distribution Width 14 % (10.5-15); White Blood Count 9.4 10^3/ul (3.5-10.8)
[2018-02-22 06:10] LABS: EGFR Non-African American 100.9 (>60)
[2018-02-22] MEDS ORDERED: Insulin LISPRO* 1 UNITS UNIT SUBCUT ONE ×2 (06:16→06:22)
[2018-02-22] MEDS: Insulin LISPRO* 1 UNITS UNIT SUBCUT SCH ×8 (08:25→23:02)
[2018-02-22] MEDS: Aspirin EC TAB* 81 MG TAB.EC PO SCH (08:36)
[2018-02-22] MEDS: Pregabalin CAP(*) 100 MG PO SCH ×3 (08:36→21:43)
[2018-02-22] MEDS: DULoxetine DR CAP* 60 MG CAP.DR PO SCH (08:36)
[2018-02-22] MEDS: Lithium Carbonate CAP 150 MG ** CAPSULE PO SCH ×2 (08:36→21:42)
[2018-02-22] MEDS ORDERED: Insulin GLARGINE(*) 1 UNITS UNIT SUBCUT SCH (09:00)
[2018-02-22] MEDS: Sulfamethox/Trimethoprim DS 800/160* TAB PO SCH ×2 (13:04→21:44)
[2018-02-22] MEDS: Cephalexin CAP* 500 MG PO SCH ×3 (13:04→21:43)
[2018-02-22] MEDS: Tamsulosin CAP* 0.4 MG PO SCH (13:05)
[2018-02-22] MEDS: Atorvastatin* 10 MG TAB PO SCH (17:43)
[2018-02-22] MEDS ORDERED: Insulin GLARGINE(*) 1 UNITS UNIT SUBCUT ONE (18:07)
--- NOTE | 2018-02-22 19:13 | PN ---
Subjective Date of Service: 02/22/18 Interval History: development of ternderness and erythema or insulin pump site, progressive from yesterday. does not have glucometer and supplies here in [place] but does back in [place]. Admits to noncompliance with meds on occasion. Insulin Pump since 1991. Used to see Dr. Alva (?sp) (Endocrinology in [place]), just moved 3 weeks ago. Objective Active Medications: Amitriptyline HCl (Elavil Tab*) 50 mg PO BEDTIME [facility] Last Admin: 02/21/18 19:39 Dose: 50 mg Aspirin (Aspirin Ec Tab*) 81 mg PO DAILY [facility] Last Admin: 02/22/18 08:36 Dose: 81 mg Atorvastatin Calcium (Lipitor*) 10 mg PO 1700 [facility] Last Admin: 02/22/18 17:43 Dose: 10 mg Cephalexin HCl (Keflex Cap*) 500 mg PO QID [facility] Last Admin: 02/22/18 17:43 Dose: 500 mg Dextrose (D50w Syringe 50 Ml*) 12.5 gm IV PUSH .FOR FS < 60 - SS PRN PRN Reason: FS < 60 Duloxetine HCl (Cymbalta Cap*) 120 mg PO DAILY [facility] Last Admin: 02/22/18 08:36 Dose: 120 mg Heparin Sodium (Porcine) (Heparin Vial(*)) 5,000 units SUBCUT Q8HR [facility] Last Admin: 02/22/18 13:05 Dose: 5,000 units Insulin Glargine (Lantus(*)) 35 units SUBCUT DAILY [facility] Insulin Human Lispro (Humalog*) 0 units SUBCUT ACHS [facility]; Protocol Last Admin: 02/22/18 17:44 Dose: 12 units Insulin Human Lispro (Humalog*) 0 units SUBCUT FS ACHS ICU [facility]; Protocol Last Admin: 02/22/18 17:44 Dose: 2 units [place] Carbonate ([place] Carbonate Cap) 300 mg PO BID [facility] Last Admin: 02/22/18 08:36 Dose: 300 mg Ondansetron HCl (Zofran Inj*) 4 mg IV Q6H PRN PRN Reason: NAUSEA Pregabalin (Lyrica Cap(*)) 200 mg PO TID [facility] Last Admin: 02/22/18 13:05 Dose: 200 mg Tamsulosin HCl (Flomax Cap*) 0.4 mg PO DAILY [facility] Last Admin: 02/22/18 13:05 Dose: 0.4 mg Trimethoprim/Sulfamethoxazole (Bactrim Ds 800/160 Tab*) 1 tab PO BID [facility] Last Admin: 02/22/18 13:04 Dose: 1 tab Vital Signs - 8 hr 02/22/18 02/22/18 02/22/18 13:05 15:31 15:39 Temperature 97.9 F Pulse Rate 103 Respiratory 18 16 18 Rate Blood Pressure 147/62 (mmHg) O2 Sat by Pulse 97 Oximetry Oxygen Devices in Use Now: None Appearance: NAD Eyes: No Scleral Icterus, PERRLA Ears/Nose/Mouth/Throat: Mucous Membranes Moist Respiratory: Symmetrical Chest Expansion and Respiratory Effort, Clear to Auscultation Cardiovascular: NL Sounds; No Murmurs; No JVD, RRR Abdominal: - - soft, tenderness + erythema + induration ~5cm right lower quadrant near insulin pump. marked with purple marker. Extremities: No Edema Skin: - - as above. scab on left mckinley. eschar on left 5th toe. Neurological: Alert and Oriented x 3, - - neuropathy in b/l feet. Nutrition: Taking PO's Result Diagrams: 02/22/18 05:35 02/22/18 05:35 Additional Lab and Data: Laboratory Results - last 24 hr 02/20/18 02/21/18 02/21/18 10:58 19:14 19:15 WBC RBC Hgb Hct MCV MCH MCHC RDW Plt Count MPV Neut % (Auto) Lymph % (Auto) [place] % (Auto) Eos % (Auto) Baso % (Auto) Absolute Neuts (auto) Absolute Lymphs (auto) Absolute Monos (auto) Absolute Eos (auto) Absolute Basos (auto) Absolute Nucleated RBC Nucleated RBC % Sodium 137 Potassium 3.8 Chloride 111 Carbon Dioxide 19 L Anion Gap 7 BUN 18 Creatinine 0.94 Est GFR ( Amer) 98.4 Est GFR (Non-Af Amer) 81.3 BUN/Creatinine Ratio 19.1 Glucose 308 H POC Glucose (mg/dL) 301 H Calcium 8.3 L Phosphorus 2.0 L Magnesium 2.0 B-Hydroxybutyrate 10.2 H 02/21/18 02/22/18 02/22/18 22:12 01:53 05:35 WBC 9.4 RBC 4.76 Hgb 14.2 Hct 40 L MCV 84 MCH 30 MCHC 36 RDW 14 Plt Count 183 MPV 7.7 Neut % (Auto) 75.5 Lymph % (Auto) 16.2 L [place] % (Auto) 6.3 Eos % (Auto) 1.4 Baso % (Auto) 0.6 Absolute Neuts (auto) 7.1 Absolute Lymphs (auto) 1.5 Absolute Monos (auto) 0.6 Absolute Eos (auto) 0.1 Absolute Basos (auto) 0.1 Absolute Nucleated RBC 0 Nucleated RBC % 0 Sodium 138 Potassium 3.4 L Chloride 111 Carbon Dioxide 21 L Anion Gap 6 BUN 14 Creatinine 0.80 Est GFR ( Amer) 118.5 Est GFR (Non-Af Amer) 98.0 BUN/Creatinine Ratio 17.5 Glucose 179 H POC Glucose (mg/dL) 206 H Calcium 8.3 L Phosphorus Magnesium B-Hydroxybutyrate 02/22/18 02/22/18 02/22/18 05:35 08:13 11:48 WBC RBC Hgb Hct MCV MCH MCHC RDW Plt Count MPV Neut % (Auto) Lymph % (Auto) [place] % (Auto) Eos % (Auto) Baso % (Auto) Absolute Neuts (auto) Absolute Lymphs (auto) Absolute Monos (auto) Absolute Eos (auto) Absolute Basos (auto) Absolute Nucleated RBC Nucleated RBC % Sodium 137 Potassium 3.6 Chloride 108 Carbon Dioxide 19 L Anion Gap 10 BUN 12 Creatinine 0.78 Est GFR ( Amer) 122.0 Est GFR (Non-Af Amer) 100.9 BUN/Creatinine Ratio 15.4 Glucose 231 H POC Glucose (mg/dL) 199 H 333 H Calcium 8.5 L Phosphorus 2.8 Magnesium 2.1 B-Hydroxybutyrate 02/22/18 16:50 WBC RBC Hgb Hct MCV MCH MCHC RDW Plt Count MPV Neut % (Auto) Lymph % (Auto) [place] % (Auto) Eos % (Auto) Baso % (Auto) Absolute Neuts (auto) Absolute Lymphs (auto) Absolute Monos (auto) Absolute Eos (auto) Absolute Basos (auto) Absolute Nucleated RBC Nucleated RBC % Sodium Potassium Chloride Carbon Dioxide Anion Gap BUN Creatinine Est GFR ( Amer) Est GFR (Non-Af Amer) BUN/Creatinine Ratio Glucose POC Glucose (mg/dL) 304 H Calcium Phosphorus Magnesium B-Hydroxybutyrate Microbiology and Other Data: Microbiology 02/20/18 12:37 Urine Urine Culture - Final No Growth (<1,000 CFU/mL) 02/20/18 12:36 Nasal Nasal Screen MRSA (PCR) - Final Mrsa Not Detected Assess/Plan/Problems-Billing Assessment: 62 yo male DMT1 on insulin pump, bipolar, HLD, p/w DKA (Ph <7.0, AG>25, BG 543) suspected malfunction on insulin pump. Now with erythema, tenderness near site suspcion for cellulitis. - Patient Problems (1) Diabetes mellitus type 1 Current Visit: Yes Status: Acute Comment: A1C 12.4 uptitrating lantus to 35U from 25U. Give additional 10U this afternoon. SSI high scale. insulin pump likely malfunctioning and now suspected cellulitis in area. continue lyrica for diabetic neuropathy. recommend f/u with Endocrinology upon discharge back in [facility]. (2) DKA (diabetic ketoacidoses) Current Visit: Yes Status: Acute Code(s): E13.10 - OTH DIABETES MELLITUS WITH KETOACIDOSIS WITHOUT COMA SNOMED Code(s): 147564557 Comment: resolved. insulin as above. (3) Cellulitis Current Visit: Yes Status: Acute Code(s): L03.90 - CELLULITIS, UNSPECIFIED SNOMED Code(s): 687536262 Comment: started bactrim and keflex given cellulitis in setting of uncontrolled DM. Repeat CRP in AM. (4) HLD (hyperlipidemia) Current Visit: Yes Status: Acute Code(s): E78.5 - HYPERLIPIDEMIA, UNSPECIFIED SNOMED Code(s): 63390708 Comment: continue atorvastatin 10mg (5) Bipolar disorder Current Visit: Yes Status: Acute Comment: continue lithium, duloxetine. Status and Disposition: medicine inpatient. Of note: Pt has a flight from [place] to [place] leaving 2pm 02/24.
[2018-02-22] MEDS: Amitriptyline TAB* 50 MG PO SCH (21:44)
[2018-02-22] MEDS: HYDROcodone/ACETAMIN 5-325 MG* 1 TAB PO PRN (23:43)
[2018-02-23] MEDS: Heparin VIAL(*) 5000 UNITS/ML VIAL (FIVE THOUSAND) SUBCUT SCH ×3 (05:47→23:00)
[2018-02-23] MEDS: HYDROcodone/ACETAMIN 5-325 MG* 1 TAB PO PRN ×2 (05:52→20:06)
[2018-02-23 06:38] LABS: ABS Basophils 0.1 10^3/ul (0-0.2); ABS Eosinophils 0.2 10^3/ul (0-0.6); ABS Lymphocytes 1.3 10^3/ul (1.0-4.8); ABS Monocytes 0.9 10^3/ul (0-0.8); ABS Neutrophils 7.9 10^3/ul (1.5-7.7); ABS Nucleated RBC 0 10^3/ul; Eosinophil % 1.7 % (0-6); Hematocrit 40 % (42-52); Lymphocyte % 12.1 % (25-47); Mean Corpuscular HGB Conc 35 g/dl (31-36); Mean Corpuscular Hemoglobin 30 pg (27-31); Mean Corpuscular Volume 84 fL (80-94); Nucleated Red Blood Cells % 0; Platelet Count 193 10^3/ul (150-450); Red Blood Count 4.73 10^6/ul (4.00-5.40); Red Cell Distribution Width 13 % (10.5-15); White Blood Count 10.3 10^3/ul (3.5-10.8)
[2018-02-23 06:48] LABS: EGFR Non-African American 100.9 (>60)
[2018-02-23] MEDS ORDERED: Insulin GLARGINE(*) 1 UNITS UNIT SUBCUT SCH ×2 (09:00→20:00)
[2018-02-23] MEDS: Insulin LISPRO* 1 UNITS UNIT SUBCUT SCH ×7 (09:20→22:13)
[2018-02-23] MEDS: DULoxetine DR CAP* 60 MG CAP.DR PO SCH (09:22)
[2018-02-23] MEDS: Tamsulosin CAP* 0.4 MG PO SCH (09:22)
[2018-02-23] MEDS: Lithium Carbonate CAP 150 MG ** CAPSULE PO SCH ×2 (09:22→19:59)
[2018-02-23] MEDS: Sulfamethox/Trimethoprim DS 800/160* TAB PO SCH ×2 (09:22→19:59)
[2018-02-23] MEDS: Pregabalin CAP(*) 100 MG PO SCH ×3 (09:22→19:59)
[2018-02-23] MEDS: Cephalexin CAP* 500 MG PO SCH ×4 (09:23→20:00)
[2018-02-23] MEDS: Aspirin EC TAB* 81 MG TAB.EC PO SCH (09:23)
--- NOTE | 2018-02-23 12:51 | RAD ---
Indication: Pain, swelling, redness at the RIGHT lateral abdominal wall previous insulin pump implantation site. Comparison: No relevant prior exams available on the [facility] PACS for comparison. Technique: Ultrasound of the region of clinical concern at the RIGHT lateral abdominal wall corresponding with the site of the previous insulin pump. REPORT AND IMPRESSION: #. Diffuse severe dermal and subcutaneous edema. #. Ill-defined irregularly-shaped infiltrative appearing 1.7 x 2.1 x 1.5 cm region of heterogeneously hypoechoic complex appearing fluid corresponding with the region of clinical concern. Negative for marginal hyperemia on Doppler. No well-defined loculated abscess collection evident.
--- NOTE | 2018-02-23 16:03 | PN ---
Subjective Date of Service: 02/23/18 Interval History: Pain in right lower abdomen. some pus drainage last night. Dr. Alexander consulted to do I&D. Objective Active Medications: Hydrocodone Bitart/Acetaminophen ([place] 5-325 Tab*) 1 tab PO Q4H PRN PRN Reason: PAIN Last Admin: 02/23/18 05:52 Dose: 1 tab Amitriptyline HCl (Elavil Tab*) 50 mg PO BEDTIME [facility] Last Admin: 02/22/18 21:44 Dose: 50 mg Aspirin (Aspirin Ec Tab*) 81 mg PO DAILY [facility] Last Admin: 02/23/18 09:23 Dose: 81 mg Atorvastatin Calcium (Lipitor*) 10 mg PO 1700 [facility] Last Admin: 02/22/18 17:43 Dose: 10 mg Cephalexin HCl (Keflex Cap*) 500 mg PO QID [facility] Last Admin: 02/23/18 12:51 Dose: 500 mg Dextrose (D50w Syringe 50 Ml*) 12.5 gm IV PUSH .FOR FS < 60 - SS PRN PRN Reason: FS < 60 Duloxetine HCl (Cymbalta Cap*) 120 mg PO DAILY [facility] Last Admin: 02/23/18 09:22 Dose: 120 mg Heparin Sodium (Porcine) (Heparin Vial(*)) 5,000 units SUBCUT Q8HR [facility] Last Admin: 02/23/18 12:51 Dose: 5,000 units Insulin Glargine (Lantus(*)) 35 units SUBCUT DAILY [facility] Last Admin: 02/23/18 09:19 Dose: 35 units Insulin Human Lispro (Humalog*) 0 units SUBCUT ACHS [facility]; Protocol Last Admin: 02/23/18 12:51 Dose: 9 units Insulin Human Lispro (Humalog*) 0 units SUBCUT AC [facility]; Protocol Last Admin: 02/23/18 12:52 Dose: 6 units [place] Carbonate ([place] Carbonate Cap) 300 mg PO BID [facility] Last Admin: 02/23/18 09:22 Dose: 300 mg Ondansetron HCl (Zofran Inj*) 4 mg IV Q6H PRN PRN Reason: NAUSEA Pregabalin (Lyrica Cap(*)) 200 mg PO TID [facility] Last Admin: 02/23/18 12:51 Dose: 200 mg Tamsulosin HCl (Flomax Cap*) 0.4 mg PO DAILY [facility] Last Admin: 02/23/18 09:22 Dose: 0.4 mg Trimethoprim/Sulfamethoxazole (Bactrim Ds 800/160 Tab*) 1 tab PO BID [facility] Last Admin: 02/23/18 09:22 Dose: 1 tab Vital Signs - 8 hr 02/23/18 02/23/18 02/23/18 08:00 09:22 10:57 Temperature 97.5 F Pulse Rate 93 Respiratory 16 17 18 Rate Blood Pressure 138/76 (mmHg) O2 Sat by Pulse 97 Oximetry 02/23/18 02/23/18 12:51 14:25 Temperature Pulse Rate Respiratory 20 16 Rate Blood Pressure (mmHg) O2 Sat by Pulse Oximetry Oxygen Devices in Use Now: None Appearance: NAD Eyes: No Scleral Icterus, PERRLA Respiratory: Symmetrical Chest Expansion and Respiratory Effort, Clear to Auscultation Cardiovascular: NL Sounds; No Murmurs; No JVD, RRR Abdominal: NL Sounds; No Tenderness; No Distention, - - right lateral abdomen with ~4cm erythema, induration with drainage centrally. Extremities: - - 1+ edema L>R Neurological: Alert and Oriented x 3, - - neuropathy in feet. Nutrition: Taking PO's Result Diagrams: 02/23/18 06:22 02/23/18 06:22 Additional Lab and Data: Laboratory Results - last 24 hr 02/22/18 02/22/18 02/23/18 16:50 19:44 01:08 WBC RBC Hgb Hct MCV MCH MCHC RDW Plt Count MPV Neut % (Auto) Lymph % (Auto) [place] % (Auto) Eos % (Auto) Baso % (Auto) Absolute Neuts (auto) Absolute Lymphs (auto) Absolute Monos (auto) Absolute Eos (auto) Absolute Basos (auto) Absolute Nucleated RBC Nucleated RBC % Sodium Potassium Chloride Carbon Dioxide Anion Gap BUN Creatinine Est GFR ( Amer) Est GFR (Non-Af Amer) BUN/Creatinine Ratio Glucose POC Glucose (mg/dL) 304 H 281 H 202 H Calcium C-Reactive Protein 02/23/18 02/23/18 02/23/18 04:18 06:22 06:22 WBC 10.3 RBC 4.73 Hgb 14.0 Hct 40 L MCV 84 MCH 30 MCHC 35 RDW 13 Plt Count 193 MPV 8.0 Neut % (Auto) 77.0 Lymph % (Auto) 12.1 L [place] % (Auto) 8.6 H Eos % (Auto) 1.7 Baso % (Auto) 0.6 Absolute Neuts (auto) 7.9 H Absolute Lymphs (auto) 1.3 Absolute Monos (auto) 0.9 H Absolute Eos (auto) 0.2 Absolute Basos (auto) 0.1 Absolute Nucleated RBC 0 Nucleated RBC % 0 Sodium 135 Potassium 4.0 Chloride 104 Carbon Dioxide 22 Anion Gap 9 BUN 17 Creatinine 0.78 Est GFR ( Amer) 122.0 Est GFR (Non-Af Amer) 100.9 BUN/Creatinine Ratio 21.8 H Glucose 283 H POC Glucose (mg/dL) 252 H Calcium 8.8 C-Reactive Protein 45.66 H 02/23/18 02/23/18 07:51 12:02 WBC RBC Hgb Hct MCV MCH MCHC RDW Plt Count MPV Neut % (Auto) Lymph % (Auto) [place] % (Auto) Eos % (Auto) Baso % (Auto) Absolute Neuts (auto) Absolute Lymphs (auto) Absolute Monos (auto) Absolute Eos (auto) Absolute Basos (auto) Absolute Nucleated RBC Nucleated RBC % Sodium Potassium Chloride Carbon Dioxide Anion Gap BUN Creatinine Est GFR ( Amer) Est GFR (Non-Af Amer) BUN/Creatinine Ratio Glucose POC Glucose (mg/dL) 301 H 294 H Calcium C-Reactive Protein Microbiology and Other Data: Microbiology 02/22/18 22:20 Abdomen Skin and Soft Tissue MRSA/MSSA (PCR - Final Mrsa Negative S.aureus Positive 02/22/18 22:20 Abdomen Gram Stain - Final 02/22/18 22:20 Abdomen Wound Culture - Preliminary Staphylococcus Aureus 02/20/18 12:37 Urine Urine Culture - Final No Growth (<1,000 CFU/mL) 02/20/18 12:36 Nasal Nasal Screen MRSA (PCR) - Final Mrsa Not Detected Assess/Plan/Problems-Billing Assessment: 62 yo male DMT1 on insulin pump, bipolar, HLD, p/w DKA (Ph <7.0, AG>25, BG 543) suspected malfunction on insulin pump likely 2/2 to right abdominal abscess now s/p I&D. - Patient Problems (1) Diabetes mellitus type 1 Current Visit: Yes Status: Acute Comment: A1C 12.4 uptitrating from lantus to 35U to 20U BID. Likely worse in setting of his abscess/infection. SSI high scale. insulin pump likely malfunctioning and now suspected cellulitis/abscess in area. continue lyrica for diabetic neuropathy. recommend f/u with Endocrinology upon discharge back in [facility]. (2) DKA (diabetic ketoacidoses) Current Visit: Yes Status: Acute Code(s): E13.10 - OTH DIABETES MELLITUS WITH KETOACIDOSIS WITHOUT COMA SNOMED Code(s): 683301307 Comment: resolved. insulin as above. (3) Cellulitis Current Visit: Yes Status: Acute Code(s): L03.90 - CELLULITIS, UNSPECIFIED SNOMED Code(s): 239251960 Comment: This was likely brewing and causing malfuction of the insulin pump though his first reported symptoms of pain were night of 02/21. Progressive to acute abscess. Appreciate Surgical assistance(Dr. Alexander) Steve Sanz on prelim wound culture. Continue bactrim and keflex, until culture sensitivies back. in setting of uncontrolled DM. Plan packing change in AM and then remove 48 hours later. (4) HLD (hyperlipidemia) Current Visit: Yes Status: Acute Code(s): E78.5 - HYPERLIPIDEMIA, UNSPECIFIED SNOMED Code(s): 17130592 Comment: continue atorvastatin 10mg (5) Bipolar disorder Current Visit: Yes Status: Acute Comment: continue lithium, duloxetine. Status and Disposition: medicine inpatient. Of note: Pt has a flight from [place] to [place] leaving 2pm 02/24.
[2018-02-23] MEDS: Atorvastatin* 10 MG TAB PO SCH (16:20)
--- NOTE | 2018-02-23 16:38 | CONS ---
SURGICAL CONSULTATION AND PROCEDURE NOTE: DATE OF CONSULT AND PROCEDURE: 02/23/18 - ROOM #410 HISTORY OF PRESENT ILLNESS: Mr. Aguilera is a 62-year-old gentleman who is up from [place] vacation, who has type 2 diabetes, on insulin that he has performed through a subcutaneous pump. He was admitted with weakness and a diagnosis of DKA and severe metabolic acidosis. He was seen by the ICU staff, ultimately transferred to the floor. He has been on antibiotics and his glucose has been monitored regularly along with his labs and shown improvement of his white blood cell count and the patient was noted to have worsening cellulitis at the site of his insulin. The patient has been receiving subcu insulin and the pump is no longer being utilized. The patient describes having infection at the site approximately 2 other times since he was placed in the early s. Usually, this was treated with antibiotics and observation. The patient states this is the worse that it has been. The patient's workup here included an ultrasound. These images were reviewed and it did show a 2 cm fluid collection in the subcutaneous base. PAST MEDICAL HISTORY: Reviewed. PAST SURGICAL HISTORY: Reviewed. ALLERGIES: No allergies to medications. SOCIAL HISTORY: Denies any smoking or drugs. REVIEW OF SYSTEMS: No fevers or chills. No significant weight loss. The patient ambulates. Again, he is up here on vacation. He lives with his in the [place]. PHYSICAL EXAM: He is afebrile. Vital signs are stable. Focused examination of the abdominal wall reveals a 4 cm area of cellulitis with multiple punctum consistent with carbuncle. No foreign bodies appreciated. Tenderness along this site. This is where the patient was infusing insulin. LABORATORY DATA: Labs reviewed, showed a white count that on arrival was 24 and is now 10. Rest of his panel was reviewed. Ultrasound described as above. IMPRESSION: Cellulitis, superficial abscess in patient with diabetic ketoacidosis, who is on antibiotics at this point. I recommended incision and drainage. I outlined the details of the procedure of incision and drainage of an abdominal wall abscess going over the risks, benefits, and alternatives. The patient agreed to proceed. We spoke of possible pain and possible complications of wound healing and need for initial drainage. The patient signed consent knowingly. PROCEDURE NOTE: After obtaining informed consent and performing a time-out, we have prepped the cellulitic area in the right flank anterior abdominal area with Betadine, injection of lidocaine around the abscess cavity along with the skin we proposed to incise was performed. A 2 cm incision was made. This was deepened down to an abscess cavity. [place], purulent fluid was removed. Specimen was sent for culture. Blunt dissection was carried out to bring up any loculations within the cavity and then it was packed with 1/4 inch iodoform packing followed by sterile dressing. The patient tolerated the procedure well. PLAN: Packing change daily while hospitalized and he can have this changed every other day while at home. The patient will be hopefully going home tomorrow and getting back to his home state. He can have the packing changed tomorrow. This can be removed by the patient in 48 hours and he can keep the area clean with Neosporin or bacitracin and follow up with his own primary care doctor who will likely send him someone who can help out. This was discussed with the hospitalist service. [id number]/CPS #: [id number] TAMMI
[2018-02-23] MEDS ORDERED: Morphine INJ* 2 MG/ML 1 ML SYRINGE (TWO MG - NEW SYRINGE VERSION) IV ONE (17:00)
[2018-02-23] MEDS: Amitriptyline TAB* 50 MG PO SCH (20:00)
[2018-02-24] MEDS ORDERED: NS 0.9% 1000 ML* 1,000 ML IV SCH (01:15)
[2018-02-24] MEDS: Magnesium Hydroxide LIQ* 30 ML UDC PO SCH ×2 (02:12→05:18)
[2018-02-24] MEDS: Heparin VIAL(*) 5000 UNITS/ML VIAL (FIVE THOUSAND) SUBCUT SCH ×3 (05:18→21:20)
--- NOTE | 2018-02-24 07:05 | PN ---
Subjective Date of Service: 02/24/18 Interval History: His flight has been moved to Wednesday. s/p I&D yesterday. Staph Aureus, not MRSA Feels weak and baseline unsteady gait due to his peripheral neuropathy. PT ordered. tmax 101.7 last night. Objective Active Medications: Hydrocodone Bitart/Acetaminophen ([place] 5-325 Tab*) 1 tab PO Q4H PRN PRN Reason: PAIN Last Admin: 02/23/18 20:06 Dose: 1 tab Amitriptyline HCl (Elavil Tab*) 50 mg PO BEDTIME [facility] Last Admin: 02/23/18 20:00 Dose: 50 mg Aspirin (Aspirin Ec Tab*) 81 mg PO DAILY [facility] Last Admin: 02/23/18 09:23 Dose: 81 mg Atorvastatin Calcium (Lipitor*) 10 mg PO 1700 [facility] Last Admin: 02/23/18 16:20 Dose: 10 mg Cephalexin HCl (Keflex Cap*) 500 mg PO QID [facility] Last Admin: 02/23/18 20:00 Dose: 500 mg Dextrose (D50w Syringe 50 Ml*) 12.5 gm IV PUSH .FOR FS < 60 - SS PRN PRN Reason: FS < 60 Duloxetine HCl (Cymbalta Cap*) 120 mg PO DAILY [facility] Last Admin: 02/23/18 09:22 Dose: 120 mg Furosemide (Lasix Tab*) 20 mg PO ONCE ONE Stop: 02/24/18 07:31 Heparin Sodium (Porcine) (Heparin Vial(*)) 5,000 units SUBCUT Q8HR [facility] Last Admin: 02/24/18 05:18 Dose: 5,000 units Insulin Glargine (Lantus(*)) 20 units SUBCUT Q12H [facility] Last Admin: 02/23/18 19:58 Dose: 20 units Insulin Human Lispro (Humalog*) 0 units SUBCUT ACHS [facility]; Protocol Last Admin: 02/23/18 22:13 Dose: 12 units Insulin Human Lispro (Humalog*) 0 units SUBCUT AC [facility]; Protocol Last Admin: 02/23/18 17:42 Dose: Not Given [place] Carbonate ([place] Carbonate Cap) 300 mg PO BID [facility] Last Admin: 02/23/18 19:59 Dose: 300 mg Ondansetron HCl (Zofran Inj*) 4 mg IV Q6H PRN PRN Reason: NAUSEA Pregabalin (Lyrica Cap(*)) 200 mg PO TID [facility] Last Admin: 02/23/18 19:59 Dose: 200 mg Tamsulosin HCl (Flomax Cap*) 0.4 mg PO DAILY [facility] Last Admin: 02/23/18 09:22 Dose: 0.4 mg Trimethoprim/Sulfamethoxazole (Bactrim Ds 800/160 Tab*) 1 tab PO BID [facility] Last Admin: 02/23/18 19:59 Dose: 1 tab Vital Signs - 8 hr 02/23/18 02/24/18 02/24/18 23:47 00:01 03:23 Temperature 101.7 F 97.6 F 99.1 F Pulse Rate 104 106 101 Respiratory 16 20 18 Rate Blood Pressure 139/70 138/71 147/71 (mmHg) O2 Sat by Pulse 89 94 90 Oximetry Oxygen Devices in Use Now: None Appearance: NAD Eyes: No Scleral Icterus, PERRLA Respiratory: Symmetrical Chest Expansion and Respiratory Effort, Clear to Auscultation Cardiovascular: NL Sounds; No Murmurs; No JVD, RRR Abdominal: NL Sounds; No Tenderness; No Distention, No Hepatosplenomegaly Extremities: - - 1+ edema left leg. Neurological: Alert and Oriented x 3, - - neuropathy Nutrition: Taking PO's Result Diagrams: 02/23/18 06:22 02/23/18 06:22 Additional Lab and Data: Laboratory Results - last 24 hr 02/23/18 02/23/18 02/23/18 07:51 12:02 16:26 POC Glucose (mg/dL) 301 H 294 H 253 H 02/23/18 02/23/18 21:47 23:51 POC Glucose (mg/dL) 321 H 192 H Microbiology and Other Data: Microbiology 02/23/18 15:30 Abdomen Skin and Soft Tissue MRSA/MSSA (PCR - Final Mrsa Negative S.aureus Positive 02/23/18 15:30 Abdomen Gram Stain - Preliminary 02/22/18 22:20 Abdomen Skin and Soft Tissue MRSA/MSSA (PCR - Final Mrsa Negative S.aureus Positive 02/22/18 22:20 Abdomen Gram Stain - Final 02/22/18 22:20 Abdomen Wound Culture - Preliminary Staphylococcus Aureus 02/20/18 12:37 Urine Urine Culture - Final No Growth (<1,000 CFU/mL) 02/20/18 12:36 Nasal Nasal Screen MRSA (PCR) - Final Mrsa Not Detected Assess/Plan/Problems-Billing Assessment: 62 yo male DMT1 on insulin pump, bipolar, HLD, p/w DKA (Ph <7.0, AG>25, BG 543) suspected malfunction on insulin pump likely 2/2 to right abdominal abscess now s/p I&D. - Patient Problems (1) Diabetes mellitus type 1 Current Visit: Yes Status: Acute Comment: A1C 12.4 uptitrating from lantus to 2%U BID. Likely worse in setting of his abscess/ infection. SSI high scale. insulin pump likely malfunctioning and now suspected cellulitis/abscess in area. continue lyrica for diabetic neuropathy. recommend f/u with Endocrinology upon discharge back in [facility]. (2) DKA (diabetic ketoacidoses) Current Visit: Yes Status: Acute Code(s): E13.10 - OTH DIABETES MELLITUS WITH KETOACIDOSIS WITHOUT COMA SNOMED Code(s): 273951105 Comment: resolved. insulin as above. (3) Cellulitis Current Visit: Yes Status: Acute Code(s): L03.90 - CELLULITIS, UNSPECIFIED SNOMED Code(s): 817661655 Comment: This was likely brewing and causing malfuction of the insulin pump though his first reported symptoms of pain were night of 02/21. Progressive to acute abscess. Appreciate Surgical assistance(Dr. Alexander) Steve Sanz on prelim wound culture. Continue keflex, until culture sensitivies back ( I am stopping bactrim). in setting of uncontrolled DM. Plan packing change in AM and daily while hospitalized, then remove 48 hours later upon discharge. (4) HLD (hyperlipidemia) Current Visit: Yes Status: Acute Code(s): E78.5 - HYPERLIPIDEMIA, UNSPECIFIED SNOMED Code(s): 93135128 Comment: continue atorvastatin 10mg (5) Bipolar disorder Current Visit: Yes Status: Acute Comment: continue lithium, duloxetine. Status and Disposition: medicine inpatient. Of note: Pt has a flight f to [place] leaving Tuesday 02/27. possible d/c later today, pending PT eval and ?fever
[2018-02-24 07:27] LABS: ABS Basophils 0 10^3/ul (0-0.2); ABS Eosinophils 0.2 10^3/ul (0-0.6); ABS Lymphocytes 1.6 10^3/ul (1.0-4.8); ABS Neutrophils 9.5 10^3/ul (1.5-7.7); ABS Nucleated RBC 0 10^3/ul; Eosinophil % 1.6 % (0-6); Hematocrit 41 % (42-52); Hemoglobin 14.4 g/dl (14.0-18.0); Lymphocyte % 12.9 % (25-47); Mean Corpuscular HGB Conc 35 g/dl (31-36); Mean Corpuscular Hemoglobin 29 pg (27-31); Mean Corpuscular Volume 84 fL (80-94); Mean Platelet Volume 8.3 um3 (7.4-10.4); Nucleated Red Blood Cells % 0.1; Platelet Count 218 10^3/ul (150-450); Red Blood Count 4.91 10^6/ul (4.00-5.40); Red Cell Distribution Width 13 % (10.5-15); White Blood Count 12.4 10^3/ul (3.5-10.8)
[2018-02-24] MEDS ORDERED: Furosemide TAB* 20 MG PO ONE (07:30)
[2018-02-24] MEDS ORDERED: Insulin GLARGINE(*) 1 UNITS UNIT SUBCUT SCH ×2 (08:00→20:00)
[2018-02-24] MEDS: Pregabalin CAP(*) 100 MG PO SCH ×3 (09:55→21:19)
[2018-02-24] MEDS: Cephalexin CAP* 500 MG PO SCH ×3 (09:55→21:25)
[2018-02-24] MEDS: DULoxetine DR CAP* 60 MG CAP.DR PO SCH (09:56)
[2018-02-24] MEDS: Aspirin EC TAB* 81 MG TAB.EC PO SCH (09:56)
[2018-02-24] MEDS: Tamsulosin CAP* 0.4 MG PO SCH (09:56)
[2018-02-24] MEDS: Lithium Carbonate CAP 150 MG ** CAPSULE PO SCH ×2 (09:56→21:19)
[2018-02-24] MEDS: Insulin LISPRO* 1 UNITS UNIT SUBCUT SCH ×7 (09:57→21:20)
--- NOTE | 2018-02-24 12:08 | PN ---
Progress Note - Progress Note Date of Service: 02/24/18 Note: Surgery Progress: S: Day #1 s/p I&D of Right abd wall abscess. Less pain, but very weak, unsteady. Will probably stay today. O: Vital Signs - 8 hr 02/24/18 02/24/18 07:21 09:55 Temperature 98.7 F Pulse Rate 104 Respiratory 24 18 Rate Blood Pressure 128/58 (mmHg) O2 Sat by Pulse 97 Oximetry Abd wound: packing removed, wound irrigated. 1/4" iodoform packing replaced. Outside wound measures ~ 2 x 1 cm with depth of 4-5 cm, bianca in posterior direction. No evidence of undrained collection. Micro: Staph aureus, sens pend (currently on Keflex) A: s/p I&D Right abd wall abscess P: cont local wound care; abx per medical team. I will plan to change packing tomorrow (Wed) a.m. (Dr. Alexander will be away).
[2018-02-24] MEDS: HYDROcodone/ACETAMIN 5-325 MG* 1 TAB PO PRN (13:26)
[2018-02-24] MEDS: ceFAZolin 500 MG VIAL(*) 500 MG in NS 0.9% 50 ML* 50 ML IVPB SCH (19:53)
[2018-02-24] MEDS: Atorvastatin* 10 MG TAB PO SCH (19:53)
[2018-02-24] MEDS: Amitriptyline TAB* 50 MG PO SCH (21:19)
[2018-02-25] MEDS ORDERED: Magnesium Hydroxide LIQ* 30 ML UDC PO ONE (01:16)
[2018-02-25] MEDS: ceFAZolin 500 MG VIAL(*) 500 MG in NS 0.9% 50 ML* 50 ML IVPB SCH ×3 (01:54→17:05)
[2018-02-25] MEDS ORDERED: Magnesium Hydroxide LIQ* 30 ML UDC PO PRN (05:00)
[2018-02-25] MEDS: Heparin VIAL(*) 5000 UNITS/ML VIAL (FIVE THOUSAND) SUBCUT SCH ×3 (06:00→21:33)
[2018-02-25 06:52] LABS: ABS Basophils 0 10^3/ul (0-0.2); ABS Eosinophils 0.4 10^3/ul (0-0.6); ABS Lymphocytes 1.6 10^3/ul (1.0-4.8); ABS Neutrophils 7.7 10^3/ul (1.5-7.7); ABS Nucleated RBC 0 10^3/ul; Eosinophil % 3.5 % (0-6); Hematocrit 38 % (42-52); Hemoglobin 13.6 g/dl (14.0-18.0); Lymphocyte % 14.6 % (25-47); Mean Corpuscular HGB Conc 35 g/dl (31-36); Mean Corpuscular Hemoglobin 30 pg (27-31); Mean Corpuscular Volume 85 fL (80-94); Mean Platelet Volume 8.2 um3 (7.4-10.4); Nucleated Red Blood Cells % 0.1; Platelet Count 225 10^3/ul (150-450); Red Blood Count 4.54 10^6/ul (4.00-5.40); Red Cell Distribution Width 13 % (10.5-15); White Blood Count 10.8 10^3/ul (3.5-10.8)
[2018-02-25 07:11] LABS: EGFR Non-African American 99.4 (>60)
[2018-02-25] MEDS ORDERED: Insulin GLARGINE(*) 1 UNITS UNIT SUBCUT SCH ×2 (08:00→21:00)
[2018-02-25] MEDS: Lithium Carbonate CAP 150 MG ** CAPSULE PO SCH ×2 (08:13→21:33)
[2018-02-25] MEDS: Pregabalin CAP(*) 100 MG PO SCH ×3 (08:13→21:32)
[2018-02-25] MEDS: Aspirin EC TAB* 81 MG TAB.EC PO SCH (08:14)
[2018-02-25] MEDS: DULoxetine DR CAP* 60 MG CAP.DR PO SCH (08:14)
[2018-02-25] MEDS: Tamsulosin CAP* 0.4 MG PO SCH (08:14)
[2018-02-25] MEDS: Insulin LISPRO* 1 UNITS UNIT SUBCUT SCH ×7 (09:18→21:31)
--- NOTE | 2018-02-25 14:06 | PN ---
Subjective Date of Service: 02/25/18 Interval History: Pt seen and examined. Meds and labs reviewed. CC: Pt mentions he feels unsteady in his gait today despite a reassuring PT assessment yesterday. Concerned about up-coming flight/travel back to [place] on Wednesday ROS: Denied GUILLORY/dizziness, F/C, N/V, CP, SOB, increased cough, sputum production , abd pain, diarrhea, constipation, dysuria, myalgias, arthralgias, throat pain , and new skin lesions. The rest of the 14 point ROS are unremarkable. PHYSICAL EXAM: GEN APPEARANCE: Awake, not in acute distress HEENT: NC/AT, PERRLA, moist oral mucosa, (-) throat erythema NECK: Soft, supple, (-) cervical LAD, (-)JVD HEART: S1S2 WNL, RRR, No MRG CHEST: CTA, BL, GAE, No W/R/R ABD: Soft, ND/NT, NABS 4x Q EXT: No C/C/E SKIN: Warm to touch PSYCH: No active psychosis, hallucinations, depression, SI/HI Objective Active Medications: Hydrocodone Bitart/Acetaminophen ([place] 5-325 Tab*) 1 tab PO Q4H PRN PRN Reason: PAIN Last Admin: 02/24/18 13:26 Dose: 1 tab Amitriptyline HCl (Elavil Tab*) 50 mg PO BEDTIME [facility] Last Admin: 02/24/18 21:19 Dose: 50 mg Aspirin (Aspirin Ec Tab*) 81 mg PO DAILY [facility] Last Admin: 02/25/18 08:14 Dose: 81 mg Atorvastatin Calcium (Lipitor*) 10 mg PO 1700 [facility] Last Admin: 02/24/18 19:53 Dose: 10 mg Dextrose (D50w Syringe 50 Ml*) 12.5 gm IV PUSH .FOR FS < 60 - SS PRN PRN Reason: FS < 60 Duloxetine HCl (Cymbalta Cap*) 120 mg PO DAILY [facility] Last Admin: 02/25/18 08:14 Dose: 120 mg Heparin Sodium (Porcine) (Heparin Vial(*)) 5,000 units SUBCUT Q8HR [facility] Last Admin: 02/25/18 13:35 Dose: 5,000 units Cefazolin Sodium 500 mg/ (Sodium Chloride) 50 mls @ 200 mls/hr IVPB Q8H [facility] Last Admin: 02/25/18 09:41 Dose: 200 mls/hr Insulin Glargine (Lantus(*)) 40 units SUBCUT Q12H [facility] Insulin Human Lispro (Humalog*) 0 units SUBCUT ACHS [facility]; Protocol Last Admin: 02/25/18 13:35 Dose: 9 units Insulin Human Lispro (Humalog*) 0 units SUBCUT AC [facility]; Protocol Last Admin: 02/25/18 13:35 Dose: 2 units [place] Carbonate ([place] Carbonate Cap) 300 mg PO BID [facility] Last Admin: 02/25/18 08:13 Dose: 300 mg Ondansetron HCl (Zofran Inj*) 4 mg IV Q6H PRN PRN Reason: NAUSEA Pregabalin (Lyrica Cap(*)) 200 mg PO TID [facility] Last Admin: 02/25/18 13:36 Dose: 200 mg Tamsulosin HCl (Flomax Cap*) 0.4 mg PO DAILY [facility] Last Admin: 02/25/18 08:14 Dose: 0.4 mg Vital Signs - 8 hr 02/25/18 02/25/18 02/25/18 07:23 08:13 08:16 Temperature 97.5 F Pulse Rate 91 Respiratory 18 18 18 Rate Blood Pressure 134/69 (mmHg) O2 Sat by Pulse 96 Oximetry 02/25/18 02/25/18 02/25/18 09:41 11:58 13:36 Temperature 98.7 F Pulse Rate 87 Respiratory 18 20 18 Rate Blood Pressure 132/72 (mmHg) O2 Sat by Pulse 93 Oximetry Oxygen Devices in Use Now: None Result Diagrams: 02/25/18 06:24 02/25/18 06:24 Additional Lab and Data: Laboratory Results - last 24 hr 02/23/18 02/23/18 02/23/18 07:51 12:02 16:26 POC Glucose (mg/dL) 301 H 294 H 253 H 02/23/18 02/23/18 21:47 23:51 POC Glucose (mg/dL) 321 H 192 H Microbiology and Other Data: Microbiology 02/23/18 15:30 Abdomen Skin and Soft Tissue MRSA/MSSA (PCR - Final Mrsa Negative S.aureus Positive 02/23/18 15:30 Abdomen Gram Stain - Preliminary 02/22/18 22:20 Abdomen Skin and Soft Tissue MRSA/MSSA (PCR - Final Mrsa Negative S.aureus Positive 02/22/18 22:20 Abdomen Gram Stain - Final 02/22/18 22:20 Abdomen Wound Culture - Preliminary Staphylococcus Aureus 02/20/18 12:37 Urine Urine Culture - Final No Growth (<1,000 CFU/mL) 02/20/18 12:36 Nasal Nasal Screen MRSA (PCR) - Final Mrsa Not Detected Assess/Plan/Problems-Billing Assessment: 62 yo male DMT1 on insulin pump, bipolar, HLD, p/w DKA (Ph <7.0, AG>25, BG 543) suspected malfunction on insulin pump likely 2/2 to right abdominal abscess now s/p I&D. - Patient Problems (1) Diabetes mellitus type 1 Current Visit: Yes Status: Acute Comment: -Increased Lantus to 40 units SQ q day -SSI high scale. -insulin pump likely malfunctioning and now suspected cellulitis/abscess in area. -continue lyrica for diabetic neuropathy. -recommend f/u with Endocrinology upon discharge back in [facility]. (2) Cellulitis Current Visit: Yes Status: Acute Code(s): L03.90 - CELLULITIS, UNSPECIFIED SNOMED Code(s): 509630168 Comment: This was likely brewing and causing malfuction of the insulin pump though his first reported symptoms of pain were night of 02/21. Progressive to acute abscess. Appreciate Surgical assistance(Dr. Alexander) Steve Sanz on prelim wound culture. Continue keflex, until culture sensitivies back ( I am stopping bactrim). in setting of uncontrolled DM. -Cont local wound care -Continue Cefazolin and convert to cephalexin on D/C (3) HLD (hyperlipidemia) Current Visit: Yes Status: Acute Code(s): E78.5 - HYPERLIPIDEMIA, UNSPECIFIED SNOMED Code(s): 98669800 Comment: continue atorvastatin 10mg (4) Bipolar disorder Current Visit: Yes Status: Acute Comment: continue lithium, duloxetine. (5) DKA (diabetic ketoacidoses) Current Visit: Yes Status: Acute Code(s): E13.10 - OTH DIABETES MELLITUS WITH KETOACIDOSIS WITHOUT COMA SNOMED Code(s): 039060351 Comment: resolved. insulin as above. Status and Disposition: Medicine inpatient. Of note: Pt has a flight f to [place] leaving Tuesday 02/27.
--- NOTE | 2018-02-25 16:32 | PN ---
Progress Note - Progress Note Date of Service: 02/25/18 Note: Surgery Progress: (Late entry; patient seen ~ 0730) S: Still some pain, but improving. Still feels weak and unsteady with ambulation. Has new flight to return to [place] on 02/27. O: Right abd wall wound: packing replaced (1/4" iodoform); still some resolving erythema and induration; less tender Micro: Staph aureus, sens to cefazolin A: s/p I&D Right abd wall abscess, improving P: wound care instructions outlined in Discharge plan in the event of discharge today or tomorrow; abx per hosp; he has a f/u scheduled on 02/28 in [place].
[2018-02-25] MEDS: Atorvastatin* 10 MG TAB PO SCH (17:03)
[2018-02-25] MEDS: Amitriptyline TAB* 50 MG PO SCH (21:32)
[2018-02-26] MEDS: ceFAZolin 500 MG VIAL(*) 500 MG in NS 0.9% 50 ML* 50 ML IVPB SCH ×2 (01:41→09:25)
[2018-02-26] MEDS: Heparin VIAL(*) 5000 UNITS/ML VIAL (FIVE THOUSAND) SUBCUT SCH (06:02)
[2018-02-26 06:06] LABS: EGFR Non-African American 114.3 (>60)
[2018-02-26 07:27] VITALS: BP 116/53
[2018-02-26] MEDS ORDERED: Dextrose 50% Syringe 50 ML* 25 GM/50 ML SYRINGE IV PUSH PRN (08:11)
[2018-02-26] MEDS ORDERED: Insulin GLARGINE(*) 1 UNITS UNIT ONE (09:08)
[2018-02-26] MEDS: Insulin GLARGINE(*) 1 UNITS UNIT SUBCUT SCH ×2 (09:25→10:27)
[2018-02-26] MEDS: Insulin LISPRO* 1 UNITS UNIT SUBCUT SCH ×3 (09:26→12:44)
[2018-02-26] MEDS: Pregabalin CAP(*) 100 MG PO SCH (09:26)
[2018-02-26] MEDS: DULoxetine DR CAP* 60 MG CAP.DR PO SCH (09:27)
[2018-02-26] MEDS: Lithium Carbonate CAP 150 MG ** CAPSULE PO SCH (09:27)
[2018-02-26] MEDS: Aspirin EC TAB* 81 MG TAB.EC PO SCH (09:27)
[2018-02-26] MEDS: Tamsulosin CAP* 0.4 MG PO SCH (09:27)
[2018-02-26] MEDS ORDERED: Insulin LISPRO* 1 UNITS UNIT SUBCUT SCH (11:30)
--- NOTE | 2018-02-26 21:25 | DS ---
CC: Dr. Vargas; Dr. Espinoza Jaime; [facility] for his Family Medicine, Dr. Mau Raya DISCHARGE SUMMARY: DATE OF ADMISSION: DATE OF DISCHARGE: 02/26/18 DISCHARGE DIAGNOSES: 1. Diabetes mellitus type 1. 2. 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 3. HOD. 4. Bipolar disorder. 5. Diabetic ketoacidosis, resolved. DISCHARGE MEDICATIONS: Are as follows: 1. Amitriptyline 50 mg p.o. q.h.s. 2. Aspirin 81 mg p.o. daily. 3. Atorvastatin 10 mg p.o. daily. 4. Cephalexin 500 mg p.o. t.i.d. for 12 days. 5. Duloxetine 120 mg p.o. daily. 6. [place] 5/325 p.o. q.6 p.r.n. for 3 days 10 tabs dispensed with 0 refills. 7. Insulin glargine 44 units subcu q.12. 8. Insulin lispro 10 units subcu q.a.c. 9. [place]an[place] tablets 2 tabs p.o. daily for 15 days. 10. [place] carbonate 300 mg p.o. b.i.d. 11. Lyrica 200 mg p.o. t.i.d. 12. Neosporin ointment 14.2 g topically daily p.r.n. per dressing change. 13. Tamsulosin 0.4 mg p.o. daily. HISTORY OF PRESENT ILLNESS/HOSPITAL COURSE: The patient is a 62-year-old gentleman with hi story of CAD, bipolar depression, and diabetes, who presented with weakness and was found to have DKA . On subsequent evaluation, further revealed he has abdominal cellulitis, likely secondary to an inf ected insulin pump, which was then removed, and the patient was placed initially on broad-spectrum an tibiotics, which was then subsequently narrowed to Keflex, cephalexin p.o. t.i.d. for 12 more days on discharge. His cultures revealed MSSA, MRSA negative screen. He has done well and his subcutaneous insulin were further adjusted prior to his discharge. Surgery has been consulted and the patient und erwent I and D with Dr. Alexander and subsequently was advised to change packing daily while hospitalized and then change every other day when at home. The patient had been educated in regards to wound hemal aning every other day by surgical team as well as appropriate use of Neosporin while cleaning. He wa s also set up for an appointment with [facility] for his Family Medicine on followup when he goes back to [place]. He was advised by Surgery that packing may be removed on 02/27/18 and may shower and to replace with triple antibiotic ointment, Neosporin and dry sterile gauze dressing and to change as needed. Fur[place]more, he was advised to follow up and/or call his PCP within 3 days post discharge and if he has any problems and if his symptoms worsen, to call his PCP first and if there is any concern and/or questi ons about his discharge plan and/or prescriptions, to call my office and/or [facility]. He was advised to follow his surgeon's advice as discussed and to follow up with wound care if possible in [place]. He was advised to take his medications as prescribed. REVIEW OF SYSTEMS: On review of systems, the patient denied any recent headaches, dizziness, fevers, chills, nausea, vomiting, chest pain, shortness of breath, increased cough and/or sputum production, abdominal pain, diarrhea, constipation, pain and/or increased frequency on urination, myalgias, arth ralgias, throat pain, or new skin lesions. The rest of the 14-point review of systems are otherwise unremarkable. PHYSICAL EXAMINATION: Reveals the most recent vital signs of records with temperature of 98.6 degree s Fahrenheit, 87 beats per minute heart rate, 16 per minute respiratory rate, saturating at 95% on ro om air, blood pressure of 116/53. General Appearance: The patient is awake, alert, and oriented x3, not in acute distress. HEENT: Normocephalic, atraumatic. PERRLA. Extraocular muscles intact. Nega tive for icterus. Moist oral mucosa. Negative throat erythema. Neck is soft, supple with no cervic al lymphadenopathy. No JVD. Heart: S1, S2 within normal limits. Regular rate and rhythm. No murm urs, rubs, and gallops. Chest: Clear to auscultation bilaterally. Good air entry. No wheezes, ral es, or rhonchi. Abdomen is soft, nondistended, nontender. Normoactive bowel sounds 4 times Q. Abdo isabel dressing is CDI. Extremities: No cyanosis, clubbing, or edema. Psychiatric: No active psych osis, depression, suicidal or homicidal ideations. Skin is warm to touch. TIME SPENT: The total time spent evaluating the patient, reviewing pertinent data and appropriate do cumentation is greater than 30 minutes. [id number]/[facility] #: [id number]
== END 2018-02-26 13:00 | disposition home or self-care (01) | DRG 721 ==
LOC: ED 10:17 → ICU 11:37 → MED 02-21 11:48
PROVIDERS: ADMIT Internal Medicine; ATTEND Student in an Organized Health Care Education/Training Program
PROC: 0H97XZZ Drainage of Abdomen Skin, External Approach (ICD-10-PCS; principal; 2018-02-24)
DX: T85.72XA Infection and inflammatory reaction due to insulin pump, initial encounter (principal); E10.10 Type 1 diabetes mellitus with ketoacidosis without coma; L03.311 Cellulitis of abdominal wall; E10.40 Type 1 diabetes mellitus with diabetic neuropathy, unspecified; L02.231 Carbuncle of abdominal wall; B95.61 Methicillin susceptible Staphylococcus aureus infection as the cause of diseases classified elsewhere; Z96.41 Presence of insulin pump (external) (internal); E78.5 Hyperlipidemia, unspecified; I25.10 Atherosclerotic heart disease of native coronary artery without angina pectoris; E10.65 Type 1 diabetes mellitus with hyperglycemia; Z79.4 Long term (current) use of insulin; Z91.030 Bee allergy status; Z83.3 Family history of diabetes mellitus
CPT/HCPCS: 36415; 71045; 76705; 80048; 80053; 80061; 80178; 80320; 81003; 81015; 82010; 82550; 82803; 83036; 83605; 83735; 84100; 84443; 84484; 85025; 85610; 86140; 87040; 87070; 87077; 87086; 87186; 87205; 87640; 87641; 93005; 99285; 99406; A9270-GY; G0480; J0690; J1644; J1815; J2270; J3480